=== PATIENT | male | born 1995 | race Caucasian/White ===

== ENCOUNTER → 2017-05-19 15:41 | Outpatient (CLI) | payer OTHER, SELFPAY | PROVIDERS: Visit Provider Otolaryngology | DX: H92.10 Otorrhea, unspecified ear (principal) | CPT/HCPCS: 87070; 87075; 87077; 87205 ==

== ENCOUNTER → 2017-05-25 08:35 | Outpatient (CLI) | payer OTHER, SELFPAY ==
--- NOTE | 2017-05-25 08:43 | CT_ITS ---
STUDY: CT MAXILLOFACIAL SINUSES REASON FOR EXAM: Male, 21 years old. Recurrent bilateral ear infections, sinusitis RADIATION DOSAGE (If Supplied By Facility): CTDIvol = ( 33.06 ) mGy, DLP = ( 931.12 ) mGycm TECHNIQUE: The patient was scanned in a multi detector CT scanner. High resolution axial imaging was performed without the administration of intravenous contrast material. Sagittal and coronal images were reconstructed. Individualized dose optimization techniques were used for this CT. COMPARISON: None. FINDINGS: FRONTAL SINUSES: Normal aeration, without mucosal inflammatory disease. ETHMOIDAL SINUSES: Normal aeration, without mucosal inflammatory disease. MAXILLARY SINUSES: Minimal mucosal thickening of the bilateral maxillary antra, focal round low-attenuation less than 1 cm in the left maxillary antrum and 1.2 cm right maxillary antrum possible retention cysts. No air-fluid levels.. SPHENOIDAL SINUSES: Normal aeration of the right with complete opacification of the left sphenoid sinus. There is patency of the right maxillary infundibulum with normal bilateral uncinate processes, ethmoid bullae, and hiatus semilunaris. Minimal opacification of the left maxillary infundibulum. Normal bilateral middle turbinates. Normal bilateral inferior turbinates. Normal midline nasal septum. There is patency of the bilateral nasal airways. The visualized osseous structures are normal. The visualized bilateral orbital contents are normal. Opacification of the left ethmoid sinuses and left ossicle. Clear right mastoid air cells and middle ear. There are cervical lymph nodes. The mandible and bilateral temporomandibular joints are intact. Presumed previous within teeth extraction. CT/Sinus/Facial Bone IMPRESSION: Left chronic otomastoiditis. Chronic left sphenoid sinusitis with complete opacification, mild chronic bilateral maxillary sinus disease with probable retention cyst. Minimal opacification left maxillary infundibulum. Presumed prior within teeth extraction. Cervical hyperplasia. Electronically Signed: Sharyn Persaud MD at 4:28 EDT , Service support ,
== END ==
PROVIDERS: Visit Provider Otolaryngology
DX: J32.9 Chronic sinusitis, unspecified (principal)
CPT/HCPCS: 70486

== ENCOUNTER → 2018-01-03 15:10 | Outpatient (CLI) | payer OTHER, SELFPAY | PROVIDERS: Referring Provider Otolaryngology; Visit Provider Otolaryngology | DX: H92.10 Otorrhea, unspecified ear (principal) | CPT/HCPCS: 87070; 87075; 87076; 87077; 87205 ==